=== PATIENT | female | born 1960 | race Caucasian/White ===

== ENCOUNTER → 2018-02-15 19:28 | Outpatient (CLI) | payer OTHER, SELFPAY ==
[2018-02-15 19:42] LABS: Absolute Lymphocyte Count 3.26 X10^3/ul (0.83-4.51); Absolute Neutrophil Count 5.5 X10^3/uL (2.0-7.7); Basophil# 0.05 X10^3/uL; Basophil% 0.5 % (0-1); Eosinophil# 0.18 X10^3/uL; Eosinophils% 1.8 % (0-5); Hematocrit 43.5 % (37-47); Lymphocyte # 3.26 X10^3/ul (4.0); Lymphocyte % 33.4 % (19-41); Mean Corp Hgb Conc 32.2 g/gl (32-36); Mean Corpuscular Volume 90.1 fL (81-99); Mean Platelet Vol. 10.2 fl (6.2-12.0); Monocyte# 0.76 X10^3/uL; Monocyte% 7.8 % (0-10); Neutrophil # 5.49 X10^3/uL (2.7-7.7); Neutrophil % 56.3 % (47-70); Platelet Count 302 K/mm3 (150-450); RBC Distribution Width CV 14.2 % (11.6-14.6); RBC Distribution Width SD 46.4 fl (35.1-43.9); Red Blood Count 4.83 M/mm3 (4.2-5.4); White Blood Count 9.8 K/mm3 (4.4-11.0)
[2018-02-15 19:44] LABS: POSITIVE COUNT NO; POSITIVE DIFFERENTIAL NO; POSITIVE MORPHOLOGY NO
[2018-02-15 19:54] LABS: Erythrocyte Sedimentation Rate 47 mm/hr (0-30)
[2018-02-15 22:25] LABS: AST(SGOT) 27 U/L (15-37); Alanine Aminotransfer ALT/SGPT 37 U/L (13-56); Albumin, Serum 3.8 g/dL (3.2-5.0); Alkaline Phosphatase 141 U/L (45-117); Anion Gap 10 (5-15); BUN 12 mg/dL (7-18); BUN/Creat Ratio 16.4 RATIO (10-20); Calcium,Total 8.7 mg/dL (8.5-10.1); Chloride 100 mmol/L (98-107); Creatinine, Serum 0.73 mg/dL (0.55-1.02); EST Glomerular Filtration Rate 88 mL/min (>60); Est Glom Filt Rate - Afr Amer 106 mL/min (>60); Glucose 82 mg/dL (74-106); Potassium 3.8 mmol/L (3.5-5.1); Protein, Total 7.8 g/dL (6.4-8.2); Sodium Level 140 mmol/L (136-145); Thyroid Stim Hormone (TSH) 0.36 uIU/mL (0.358-3.74)
[2018-02-18 12:13] LABS: ANTINUCLEAR ANTIBODIES DIRECT Negative (Negative)
== END ==
PROVIDERS: Family Provider Family Medicine; PCP Family Medicine; Visit Provider Family Medicine
DX: R21 Rash and other nonspecific skin eruption (principal); E03.9 Hypothyroidism, unspecified
CPT/HCPCS: 80053; 84443; 85025; 85652; 86038

== ENCOUNTER → 2019-08-21 08:24 | Outpatient (CLI) | payer OTHER, SELFPAY ==
[2018-09-12 15:25] VITALS: BMI 33.7
== END ==
PROVIDERS: Family Provider Family Medicine; PCP Family Medicine; Visit Provider Family Medicine
DX: I10 Essential (primary) hypertension (principal); E03.9 Hypothyroidism, unspecified
CPT/HCPCS: 36415

== ENCOUNTER → 2020-08-13 08:27 | Outpatient (CLI) | payer OTHER, SELFPAY ==
[2018-09-12 15:25] VITALS: BMI 33.7
[2020-08-13 09:49] LABS: Hematocrit 42.3 % (37-47); Hemoglobin 12.7 g/dL (12.0-15.0); Mean Corpuscular Hgb 25.8 pg (27.0-32.0); Platelet Count 320 K/mm3 (150-450); RBC Distribution Width CV 15.7 % (11.6-14.6); RBC Distribution Width SD 49.2 fl (35.1-43.9); Red Blood Count 4.92 M/mm3 (4.2-5.4); White Blood Count 7.3 K/mm3 (4.4-11.0)
[2020-08-13 10:07] LABS: Vitamin B12 201 pg/mL (211-911); Vitamin D,25 Hydroxy 22.3 ng/mL
[2020-08-13 12:20] LABS: Anion Gap 3 (5-15); BUN 12 mg/dL (7-18); BUN/Creat Ratio 17.1 RATIO (10-20); Calcium,Total 8.7 mg/dL (8.5-10.1); Chloride 108 mmol/L (98-107); Cholesterol 184 mg/dL (200); EST Glomerular Filtration Rate 91 mL/min (>60); Est Glom Filt Rate - Afr Amer 110 mL/min (>60); Glucose 97 mg/dL (74-106); High Density Lipoprotein 45 mg/dL; Iron 32 ug/dL (50-170); Potassium 4.1 mmol/L (3.5-5.1); Sodium Level 141 mmol/L (136-145); T4 Free Direct 1.37 ng/dL (0.76-1.46); Thyroid Stim Hormone (TSH) 1.88 uIU/mL (0.358-3.74); Triglycerides 74 mg/dL; Very Low Density Lipoprotein 15 mg/dL (5-40)
== END ==
PROVIDERS: PCP Family Medicine; Referring Provider Family Medicine; Visit Provider Family Medicine
DX: Z13.220 Encounter for screening for lipoid disorders (principal); I10 Essential (primary) hypertension; E03.9 Hypothyroidism, unspecified; R53.83 Other fatigue
CPT/HCPCS: 36415; 80048; 80061; 82306; 82607; 83540; 84439; 84443; 85027

== ENCOUNTER → 2020-09-12 16:05 | Outpatient (CLI) | payer OTHER, SELFPAY ==
[2018-09-12 15:25] VITALS: BMI 33.7
--- NOTE | 2020-09-12 16:08 | BI_ITS ---
MAMMOGRAPHY - BILATERAL SCREENING REASON FOR EXAM: Female, 60 years old. Routine annual screening examination. PERTINENT HISTORY: Non-contributory. TECHNIQUE: Digital bilateral breast colin (3D mammographic acquisition) in the CC and MLO projections. 2-D mediolateral oblique (MLO) and craniocaudad (CC) views of both breasts were obtained. CAD: Full Field Digital Mammography with Computer Added Detection was performed. COMPARISON: Comparison is made with prior study dated 07/12/2017 and 03/09/2016. FINDINGS: Breast Composition: The breasts are heterogeneously dense, which may obscure small masses. There are no dominant masses or suspicious calcifications. No other significant abnormalities are identified. There has been no significant change since the prior study. BI/SCREEN MAMM (CAD) W/COLIN BILAT IMPRESSION: Stable bilateral screening mammogram. Yearly follow-up mammogram recommended. (A) ASSESSMENT CATEGORY: BIRADS Category 1: Negative. A letter regarding these results will be sent to the patient by the facility within 30 days. Approximately 10% of breast cancers are not detected by mammography. A normal mammogram should not delay biopsy of a clinically suspicious abnormality. [id number] Electronically Signed: Serigo Rm, at 8:38 EST , Service support ,
== END ==
PROVIDERS: PCP Family Medicine; Referring Provider Family Medicine; Visit Provider Family Medicine
DX: Z12.31 Encounter for screening mammogram for malignant neoplasm of breast (principal)
CPT/HCPCS: 77063; 77067

== ENCOUNTER → 2020-12-09 11:09 | Outpatient (CLI) | payer OTHER, SELFPAY ==
[2018-09-12 15:25] VITALS: BMI 33.7
--- NOTE | 2020-12-09 11:12 | US_ITS ---
STUDY: ULTRASOUND OF THE FEMALE PELVIS - LIMITED REASON FOR EXAM: Female, 60 years old SEE BELOW -- POST MENOPAUSAL BLEEDING, SCREENING FOR MALIGNANT NEOPLASM OF CERVIX TECHNIQUE: Transabdominal and Transvaginal TECHNICAL QUALITY: Adequate. COMPARISON: May 12, 2012 ultrasound pelvis transabdominal study FINDINGS: The uterus is anteverted and is in a midline position. The uterus measures 7.4 x 5.4 x 4.5 cm. The cervix is not well visualized. The endometrium measures 13 mm in thickness, and is partially hyperechoic with a few cysts.. There are small low attenuating cystic structures within the endometrium. There is no demonstrated myometrial mass. The right ovary measures 2.1 x 1.4 x 1 point cm. There is no right ovarian cyst or ovarian mass. There is no visualized right adnexal mass or complex lesion. There is normal arterial and normal venous vascularity. The left ovary measures 2.6 x 1.6 x 1.4 cm. There is no left ovarian cyst or ovarian mass. There is no visualized left adnexal mass or complex lesion. There is normal arterial and normal venous vascularity. There is no fluid in the cul-de-sac. US/Pelvic (Non ) IMPRESSION: Endometrium is thickened, 13 mm with a few associated endometrial cystic structures. Findings are suspicious for endometrial hyperplasia. An endometrium of 4 mm or greater is considered suspicious in a postmenopausal patient with bleeding. Further evaluation is warranted. The cervix is not well visualized. Electronically Signed: Anna Marie Gayle MD at 1:58 EST Tel , Service support ,
--- NOTE | 2020-12-09 11:13 | US_ITS ---
STUDY: ULTRASOUND OF THE FEMALE PELVIS - LIMITED REASON FOR EXAM: Female, 60 years old SEE BELOW -- POST MENOPAUSAL BLEEDING, SCREENING FOR MALIGNANT NEOPLASM OF CERVIX TECHNIQUE: Transabdominal and Transvaginal TECHNICAL QUALITY: Adequate. COMPARISON: May 12, 2012 ultrasound pelvis transabdominal study FINDINGS: The uterus is anteverted and is in a midline position. The uterus measures 7.4 x 5.4 x 4.5 cm. The cervix is not well visualized. The endometrium measures 13 mm in thickness, and is partially hyperechoic with a few cysts.. There are small low attenuating cystic structures within the endometrium. There is no demonstrated myometrial mass. The right ovary measures 2.1 x 1.4 x 1 point cm. There is no right ovarian cyst or ovarian mass. There is no visualized right adnexal mass or complex lesion. There is normal arterial and normal venous vascularity. The left ovary measures 2.6 x 1.6 x 1.4 cm. There is no left ovarian cyst or ovarian mass. There is no visualized left adnexal mass or complex lesion. There is normal arterial and normal venous vascularity. There is no fluid in the cul-de-sac. US/Transvaginal Non- IMPRESSION: Endometrium is thickened, 13 mm with a few associated endometrial cystic structures. Findings are suspicious for endometrial hyperplasia. An endometrium of 4 mm or greater is considered suspicious in a postmenopausal patient with bleeding. Further evaluation is warranted. The cervix is not well visualized. Electronically Signed: Anna Marie Gayle MD at 1:58 EST Tel , Service support ,
== END ==
PROVIDERS: PCP Family Medicine
DX: Z12.4 Encounter for screening for malignant neoplasm of cervix (principal); N95.0 Postmenopausal bleeding
CPT/HCPCS: 76830; 76856

== ENCOUNTER → 2021-02-10 13:50 | Outpatient (CLI) | payer OTHER, SELFPAY ==
[2018-09-12 15:25] VITALS: BMI 33.7
[2021-02-10 15:23] LABS: Ferritin 8 ng/mL (8-252); Iron 26 ug/dL (50-170)
[2021-02-10 15:36] LABS: Vitamin B12 779 pg/mL (211-911); Vitamin D,25 Hydroxy 38.7 ng/mL
== END ==
PROVIDERS: PCP Family Medicine; Referring Provider Family Medicine; Visit Provider Family Medicine
DX: E61.1 Iron deficiency (principal)
CPT/HCPCS: 36415; 82306; 82607; 82728; 83540

== ENCOUNTER → 2021-08-13 14:33 | Outpatient (CLI) | payer OTHER, SELFPAY ==
[2021-08-13 17:56] LABS: Hemoglobin 14.8 g/dL (12.0-15.0); Mean Corp Hgb Conc 32.2 g/dL (32-36); Mean Corpuscular Hgb 29.4 pg (27.0-32.0); Mean Corpuscular Volume 91.3 fL (81-99); Mean Platelet Vol. 10.5 fl (6.2-12.0); Platelet Count 295 K/mm3 (150-450); RBC Distribution Width CV 14.5 % (11.6-14.6); RBC Distribution Width SD 48.4 fl (35.1-43.9); Red Blood Count 5.04 M/mm3 (4.2-5.4); White Blood Count 9.8 K/mm3 (4.4-11.0)
[2021-08-13 18:11] LABS: Erythrocyte Sedimentation Rate 39 mm/hr (0-30)
[2021-08-13 18:34] LABS: ALB/GLOB Ratio 0.8 RATIO (0.9-2.4); AST(SGOT) 21 U/L (15-37); Alanine Aminotransfer ALT/SGPT 34 U/L (13-56); Albumin, Serum 3.6 g/dL (3.2-5.0); Alkaline Phosphatase 120 U/L (45-117); Anion Gap 7 (5-15); BUN 13 mg/dL (7-18); BUN/Creat Ratio 15.8 RATIO (10-20); Calcium,Total 8.9 mg/dL (8.5-10.1); Chloride 104 mmol/L (98-107); Creatinine, Serum 0.82 mg/dL (0.55-1.02); EST Glomerular Filtration Rate 75 mL/min (>60); Est Glom Filt Rate - Afr Amer 91 mL/min (>60); Ferritin 50 ng/mL (8-252); Globulin 4.7 g/dL (2.2-4.2); Glucose 70 mg/dL (74-106); Iron 65 ug/dL (50-170); Potassium 4.1 mmol/L (3.5-5.1); Protein, Total 8.3 g/dL (6.4-8.2); Sodium Level 138 mmol/L (136-145); T4 Free Direct 1.22 ng/dL (0.76-1.46); Thyroid Stim Hormone (TSH) 4.23 uIU/mL (0.358-3.74)
[2021-08-14 10:50] LABS: Vitamin B12 827 pg/mL (211-911); Vitamin D,25 Hydroxy 47.8 ng/mL
== END ==
PROVIDERS: PCP Family Medicine; Referring Provider Family Medicine; Visit Provider Family Medicine
DX: R53.83 Other fatigue (principal); E03.9 Hypothyroidism, unspecified; E53.8 Deficiency of other specified B group vitamins; E55.9 Vitamin D deficiency, unspecified
CPT/HCPCS: 36415; 80053; 82306; 82533; 82607; 82728; 83540; 84439; 84443; 85027; 85652

== ENCOUNTER → 2022-02-13 | Outpatient (CLI) | payer OTHER, SELFPAY ==
[2022-02-13 10:49] LABS: ALB/GLOB Ratio 0.8 RATIO (0.9-2.4); AST(SGOT) 24 U/L (15-37); Alanine Aminotransfer ALT/SGPT 34 U/L (13-56); Albumin, Serum 3.6 g/dL (3.2-5.0); Alkaline Phosphatase 118 U/L (45-117); Anion Gap 6 (5-15); BUN 11 mg/dL (7-18); BUN/Creat Ratio 14.8 RATIO (10-20); Calcium,Total 8.7 mg/dL (8.5-10.1); Chloride 104 mmol/L (98-107); Creatinine, Serum 0.74 mg/dL (0.55-1.02); EST Glomerular Filtration Rate 85 mL/min (>60); Est Glom Filt Rate - Afr Amer 103 mL/min (>60); Globulin 4.5 g/dL (2.2-4.2); Glucose 95 mg/dL (74-106); Potassium 3.9 mmol/L (3.5-5.1); Protein, Total 8.1 g/dL (6.4-8.2); Sodium Level 138 mmol/L (136-145); T4 Free Direct 1.37 ng/dL (0.76-1.46); Thyroid Stim Hormone (TSH) 0.95 uIU/mL (0.358-3.74)
== END | disposition home or self-care (01) ==
LOC: MFPLAB 08:30
PROVIDERS: PCP Family Medicine; Visit Provider Family Medicine
DX: R77.1 Abnormality of globulin (principal); E03.9 Hypothyroidism, unspecified
CPT/HCPCS: 36415; 80053; 84439; 84443

== ENCOUNTER → 2022-02-16 | Outpatient (CLI) | payer OTHER, SELFPAY ==
[2022-02-16 16:24] LABS: Mucous, Urine 0 SEEN /hpf (<or=2+)
[2022-02-16 17:51] LABS: Color, Urine Yellow (Yellow); Glucose, Dipstick Normal (Normal); Ketone-Dipstick Negative (Negative); Leukocyte Esterase-Dipstick Negative /ul (Negative); Nitrite-Dipstick Negative (Negative); Occult Blood-Urine 50 /ul (Negative); Protein-Dipstick Negative (Negative); Urine Bilirubin Dipstick Negative (Negative); Urine Clarity Clear (Clear); Urine Urobilinogen Normal (Normal)
[2022-02-16 18:17] LABS: Bacteria 1+ /hpf (None Seen); Red Blood Cells-Urine 0-5 SEEN /hpf (0-5); Squamous Epithelial Cells - UA 0-5 SEEN /hpf (5-10); White Blood Cells 0-5 SEEN /hpf (0-5)
[2022-02-19 14:09] LABS: PROELU- Albumin, Urine 29.9 % (.); PROELU- Alpha-1-Globulin,Ur 3.3 % (.); PROELU- Alpha-2-Globulin,Ur 13.7 % (.); PROELU- Beta Globulin, Ur 28.9 % (.); PROELU- Gamma Globulin, Ur 24.3 % (.); Total Protein, Ur 8.3 mg/dL (Not Estab.)
== END | disposition home or self-care (01) ==
LOC: MFPLAB 16:22
PROVIDERS: PCP Family Medicine; Visit Provider Family Medicine
DX: R79.82 Elevated C-reactive protein (CRP) (principal)
CPT/HCPCS: 81001; 84166

== ENCOUNTER → 2022-02-23 | Outpatient (CLI) | payer OTHER, SELFPAY ==
[2022-02-25 13:08] LABS: PROEL- A/G Ratio 1.1 (0.7-1.7); PROEL- Albumin 3.8 g/dL (2.9-4.4); PROEL- Alpha-1 Globulin 0.3 g/dL (0.0-0.4); PROEL- Beta Globulin 1.1 g/dL (0.7-1.3); PROEL- Gamma Globulin 1.2 g/dL (0.4-1.8); PROEL- Globulin, Total 3.5 g/dL (2.2-3.9); PROEL- TOTAL PROTEIN 7.3 g/dL (6.0-8.5)
== END | disposition home or self-care (01) ==
LOC: MFPLAB 16:33
PROVIDERS: PCP Family Medicine; Visit Provider Family Medicine
DX: R79.82 Elevated C-reactive protein (CRP) (principal)
CPT/HCPCS: 36415; 84165

== ENCOUNTER → 2022-10-02 | Outpatient (CLI) | payer OTHER, SELFPAY ==
--- NOTE | 2022-10-02 14:35 | CYST_PTH ---
PATIENT: MORA FOREMAN LOC: [facility] U#:[id number] AGE/SX: 62/F ROOM: RE10/02/[address]: Dr. Daphne Arboleda MD : 1960 BED: DIS: 10/02/2022 SPEC #: [id number] RECD: 10/06/22 09:33 STATUS: CHARLINE YELENA #: [id number] SAUL: 10/02/22 14:[address]: Daphne Arboleda DEPT: SURGICAL PATHOLOGY RECD BY: Val Salgado ENTERED: 10/06/22 09:33 SP TYPE: Cyst OTHR DR: Dr. Ector Samuel MD Tissues: CYST Procedures: Surgery Specimen Level IV HEADER OPERATION: Excision of right medial breast / sternal sebaceous cyst PRE-OP DIAGNOSIS: Sebaceous cyst TISSUE SUBMITTED: Right breast / sternal sebaceous cyst tissue MICROSCOPIC DIAGNOSIS Skin and soft tissue of right breast/sternal area, biopsy: Skin and underlying soft tissue with granulation and chronic inflammation. AM:cristy 10/07/2022 MICROSCOPIC DESCRIPTION Slides are reviewed. GROSS DESCRIPTION Received in fixative is one container labeled with the patient's name and designated sebaceous cyst. The specimen consists of an irregular fragment of pink-white soft tissue measuring 1.8 x 1 x 0.5 cm. An ellipse of unremarkable skin is present measuring 1.5 x 0.5 cm. The specimen is bisected along its long axis and totally submitted in one cassette. / AM:cristy 10/06/2022 TC:3 CPT: 77084
== END | disposition home or self-care (01) ==
LOC: LABSPEC 15:41
PROVIDERS: PCP Family Medicine; Visit Provider Surgery
DX: N60.81 Other benign mammary dysplasias of right breast (principal)
CPT/HCPCS: 88304; 88305

== ENCOUNTER → 2023-02-10 | Outpatient (CLI) | payer OTHER, SELFPAY ==
[2023-02-10 10:42] LABS: Vitamin B12 842 pg/mL (211-911); Vitamin D,25 Hydroxy 67.3 ng/mL
[2023-02-10 10:45] LABS: ALB/GLOB Ratio 0.8 RATIO (0.9-2.4); AST(SGOT) 22 U/L (15-37); Alanine Aminotransfer ALT/SGPT 33 U/L (13-56); Albumin, Serum 3.5 g/dL (3.2-5.0); Alkaline Phosphatase 119 U/L (45-117); Anion Gap 8 (5-15); BUN 12 mg/dL (7-18); BUN/Creat Ratio 16.2 RATIO (10-20); Calcium,Total 9.1 mg/dL (8.5-10.1); Chloride 104 mmol/L (98-107); Cholesterol 207 mg/dL (200); Creatinine, Serum 0.74 mg/dL (0.55-1.02); EST Glomerular Filtration Rate 85 mL/min (>60); Est Glom Filt Rate - Afr Amer 102 mL/min (>60); Globulin 4.5 g/dL (2.2-4.2); Glucose 96 mg/dL (74-106); High Density Lipoprotein 41 mg/dL; Potassium 4.4 mmol/L (3.5-5.1); Sodium Level 140 mmol/L (136-145); Thyroid Stim Hormone (TSH) 0.94 uIU/mL (0.358-3.74); Triglycerides 99 mg/dL; Very Low Density Lipoprotein 20 mg/dL (5-40)
[2023-02-17 15:08] LABS: PROEL- A/G Ratio 0.9 (0.7-1.7); PROEL- Albumin 3.4 g/dL (2.9-4.4); PROEL- Alpha-1 Globulin 0.3 g/dL (0.0-0.4); PROEL- Beta Globulin 1.3 g/dL (0.7-1.3); PROEL- Gamma Globulin 1.2 g/dL (0.4-1.8); PROEL- Globulin, Total 3.9 g/dL (2.2-3.9); PROEL- TOTAL PROTEIN 7.3 g/dL (6.0-8.5)
== END | disposition home or self-care (01) ==
LOC: MFPLAB 08:04
PROVIDERS: PCP Family Medicine; Visit Provider Family Medicine
DX: I10 Essential (primary) hypertension (principal); E03.9 Hypothyroidism, unspecified; E53.8 Deficiency of other specified B group vitamins; E55.9 Vitamin D deficiency, unspecified
CPT/HCPCS: 36415; 80053; 80061; 82306; 82607; 84165; 84443

== ENCOUNTER → 2023-04-12 | Outpatient (CLI) | payer OTHER, SELFPAY | END | disposition home or self-care (01) | PROVIDERS: PCP Family Medicine; Referring Provider Nurse Practitioner Acute Care; Visit Provider Nurse Practitioner Acute Care | DX: G47.10 Hypersomnia, unspecified (principal) | CPT/HCPCS: 95806 ==

== ENCOUNTER → 2023-04-29 | Outpatient (CLI) | payer OTHER, SELFPAY ==
--- NOTE | 2023-04-29 15:42 | CT_ITS ---
INDICATION: smoking, quit 2012 EXAMINATION: - CT Low Dose CT Chest for Lung Cancer Screening A radiation dose optimization technique was used for this scan. COMPARISON: None. FINDINGS: Low-dose Noncontrast serial CT axial images through the chest with coronal and sagittal reformatted series. MEDIASTINUM: Mild coronary artery atherosclerotic calcifications. Noncontrast mediastinum is otherwise unremarkable. LUNG PARENCHYMA: No acute pulmonary parenchymal abnormality. Lateral left upper lobe 3 mm pulmonary nodule on axial image 75 of series 2. Right lower lobe juxtapleural 3 mm pulmonary nodule on axial image 108. PLEURA: No pleural effusion. No pneumothorax. BONES: Osseous structures are unremarkable for age. UPPER ABDOMEN: Unremarkable. CT/Low Dose CT Lung Screening IMPRESSION: Lung-RADS CATEGORY 2: Benign Appearance Nodules. Annual screening with low dose CT in 12 months. Electronically Signed: Baron Horta MD at 2:12 EDT ,
== END | disposition home or self-care (01) ==
PROVIDERS: PCP Family Medicine; Referring Provider Nurse Practitioner Acute Care; Visit Provider Nurse Practitioner Acute Care
DX: Z12.2 Encounter for screening for malignant neoplasm of respiratory organs (principal); Z87.891 Personal history of nicotine dependence
CPT/HCPCS: 71271

== ENCOUNTER → 2023-05-13 | Outpatient (CLI) | payer OTHER, SELFPAY | END | disposition home or self-care (01) | LOC: SL 08:57 | PROVIDERS: PCP Family Medicine; Visit Provider Nurse Practitioner Acute Care | DX: R69 Illness, unspecified (principal) ==

== ENCOUNTER → 2023-09-30 | Outpatient (CLI) | payer OTHER, SELFPAY ==
--- NOTE | 2023-09-30 15:16 | BD_ITS ---
STUDY: DUAL ENERGY X-RAY ABSORPTIOMETRY / DXA REASON FOR EXAM: Female, 63 years old. 627.8Menopausal postmenopausal BONE DENSITY REASON FOR EXAM TECHNIQUE: Bone Mineral Density (BMD) measurements of lumbar spine and bilateral hips were obtained. COMPARISON: Comparison is made with prior study dated May 12, 2012. FINDINGS: Lumbar Spine (L1-L4): g/cm2 (1.066) / T-score (0.2) / Z-score (1.7) Findings are suggestive of normal bone density with a low fracture risk. Left Femur Total: g/cm2 (1.025) / T-score (0.7) / Z-score (1.7) Left Femoral Neck: g/cm2 (0.849) / T-score (0.0) / Z-score (1.4) Right Femur Total: g/cm2 (0.941) / T-score (0.0) / Z-score (1.0) Right Femoral Neck: g/cm2 (0.821) / T-score (-0.3) / Z-score (1.1) The T-Scores on the most recent prior examination were: Lumbar Spine (L1-L4): There has been worsening of bone density since the previous examination. Left Femur Total: which represents a worsening of 3.1%. Right Femur Total: which represents a worsening of 4.8%. BD/Dexa Bone Density Study IMPRESSION: The patient is considered normal as outlined below according to World New Organization (WHO) criteria with a low fracture risk. There has been worsening of bone density since the previous examination. Reference Information: The T-score is the number of standard deviations above or below the standard which is normal for young adults at their peak bone mineral density. The World Health Organization (WHO) interprets the T-scores as follows: Above -1 Normal bone density Between -1 and -2.5 Osteopenia Equal to / or below -2.5 Osteoporosis As a practical clinical guideline, osteopenia may be graded as follows: Mild -1 through -1.5 Moderate -1.6 through -2.0 Severe -2.1 through -2.4 The Z-score is the number of standard deviations above or below age-matched controls. A Z-score of less than -1.5 would be considered abnormal. References: 1. NIH Osteoporosis and Related Bone Diseases www osteo.org 2. International Society for Clinical Densitometry www iscd.org 3. National Osteoporosis Foundation www nof.org Electronically Signed: Sergio Rm MD at 15:16 EST ,
--- NOTE | 2023-09-30 15:17 | BI_ITS ---
MAMMOGRAPHY - BILATERAL SCREENING 3-D TOMOSYNTHESIS REASON FOR EXAM: Female, 63 years old. Routine annual screening mammogram. PERTINENT HISTORY: No significant family history. TECHNIQUE: 2-D mammograms and 3-D Tomosynthesis of the breast (s) were performed. CAD was performed. COMPARISON: September 12, 2020, July 12, 2017 FINDINGS: The breast composition is composed of scattered fibroglandular density. Stable normal lymph nodes. No dominant masses, suspicious microcalcifications, asymmetries, skin thickening or nipple retraction . BI/SCRN MAMM (CAD)W/COLIN BILAT IMPRESSION: No interval change and no mammographic signs of malignancy. Routine yearly mammogram recommended. ASSESSMENT CATEGORY: BIRADS Category 2: Benign. A letter regarding these results will be sent to the patient by the facility within 30 days. FOLLOW UP RECOMMENDATION: Yearly follow up mammogram recommended. (A) Approximately 10% of breast cancers are not detected by mammography. A normal mammogram should not delay biopsy of a clinically suspicious abnormality. Electronically Signed: Patrice Castro MD at 9:37 EST ,
--- OUTSIDE RECORDS SUMMARY | 2023-09-30 15:37 | XMS RPT_ITS | CCD ---
Author Name Unknown Address [address] [place] [address] Organization [facility] Results Test Name Value Interpretation Reference Range Facil ity Summary Purpose Family History No Family History Records FoundNo Family History Records Found Advance Directives No Advanced Directives Records FoundNo Advanced Directives Records Found Additional Source Comments INFORMATION SOURCE (unrecogn ized section and content) DATE CREATED AUTHOR AUTHOR'S VICK ATION 09/03/2021 [facility] ([place]) FOR RECORDS PERTAINING TO PATIENTS WHO ARE OR HAVE BEEN ENROLLED IN A CHEMICAL DEPENDENCY/SUBSTANCEABUSE PROGRAM, SOME INFORMATION MAY BE OMITTED. This clinical summary was aggregated from multiple sources. Caution should be exercised in using it in the provision of clinical care. This summary normalizes information from multiple sources, and as a consequence, information in this document may materially change the coding, format and clinical context of patient data. In addition, data may be omitted in some cases. CLINICAL DECISIONS SHOULD BE BASED ON THE PRIMARY CLINICAL RECORDS. [facility] [employer] [facility]. provides no warranty or guarantee of the accuracy or completeness of information in this document.
== END | disposition home or self-care (01) ==
LOC: OPBD 15:14
PROVIDERS: PCP Family Medicine; Visit Provider Family Medicine
DX: Z12.31 Encounter for screening mammogram for malignant neoplasm of breast (principal); Z78.0 Asymptomatic menopausal state
CPT/HCPCS: 77063; 77067; 77080

== ENCOUNTER → 2024-02-24 | Outpatient (CLI) | payer OTHER, SELFPAY ==
[2024-02-24 17:45] LABS: Absolute Lymphocyte Count 2.48 X10^3/uL (0.83-4.51); Absolute Neutrophil Count 5.9 X10^3/uL (2.0-7.7); Basophil# 0.09 X10^3/uL; Basophil% 0.9 % (0-1); Eosinophil# 0.33 X10^3/uL; Eosinophils% 3.4 % (0-5); Hematocrit 46.2 % (37-47); Hemoglobin 14.7 g/dL (12.0-15.0); Lymphocyte # 2.48 X10^3/ul (0.83-4.51); Lymphocyte % 25.7 % (19-41); Mean Corp Hgb Conc 31.8 g/dL (32-36); Mean Corpuscular Hgb 29.6 pg (27.0-32.0); Mean Platelet Vol. 10.1 fl (6.2-12.0); Monocyte% 8.3 % (0-10); NRBC Flagged by Analyzer 0 % (0-5); Neutrophil # 5.91 X10^3/uL (2.7-7.7); Neutrophil % 61.4 % (47-70); Platelet Count 240 K/mm3 (150-450); RBC Distribution Width CV 13.3 % (11.6-14.6); RBC Distribution Width SD 45.1 fl (35.1-43.9); Red Blood Count 4.97 M/mm3 (4.2-5.4); White Blood Count 9.6 K/mm3 (4.4-11.0)
[2024-02-24 18:20] LABS: Ferritin 69 ng/mL (8-252); Iron 55 ug/dL (50-170); T4 Free Direct 1.32 ng/dL (0.76-1.46); Thyroid Stim Hormone (TSH) 0.19 uIU/mL (0.358-3.74)
== END | disposition home or self-care (01) ==
LOC: MFPLAB 14:25
PROVIDERS: PCP Family Medicine; Visit Provider Family Medicine
DX: D64.9 Anemia, unspecified (principal); E03.9 Hypothyroidism, unspecified
CPT/HCPCS: 36415; 82728; 83540; 84439; 84443; 85025

== ENCOUNTER → 2024-05-10 | Outpatient (CLI) | payer OTHER, SELFPAY ==
[2024-05-10 18:19] LABS: T4 Free Direct 1.03 ng/dL (0.76-1.46); Thyroid Stim Hormone (TSH) 2.13 uIU/mL (0.358-3.74)
== END | disposition home or self-care (01) ==
LOC: MFPLAB 15:59
PROVIDERS: PCP Family Medicine; Visit Provider Family Medicine
DX: E03.9 Hypothyroidism, unspecified (principal)
CPT/HCPCS: 36415; 84439; 84443

== ENCOUNTER → 2024-08-01 | Outpatient (CLI) | payer OTHER, SELFPAY ==
--- NOTE | 2024-08-01 12:20 | LES_PTH ---
PATIENT: MORA FOREMAN LOC: [facility] U#:[id number] AGE/SX: 64/F ROOM: RE08/01/[address]: Dr. Odell Bangura MD : 1960 BED: DIS: 08/01/2024 SPEC #: [id number] RECD: 08/01/24 13:51 STATUS: CHARLINE KIRK #: [id number] SAUL: 08/01/24 12:[address]: Odell Bangura DEPT: SURGICAL PATHOLOGY RECD BY: Maycol Clay ENTERED: 08/01/24 14:13 SP TYPE: Lesion OTHR DR: Dr. Ector Samuel MD Tissues: Skin of eyelid, NOS Procedures: Surgery Specimen Level IV HEADER OPERATION: Biopsy lesion right eyelid PRE-OP DIAGNOSIS: Right eyelid lesion TISSUE SUBMITTED: Right upper eyelid biopsy MICROSCOPIC DIAGNOSIS Right upper lid lesion, biopsy: Consistent with fragments of inflamed verrucous keratosis and squamous papilloma. Negative for malignancy. See comment. Ketan 08/02/2024 COMMENT This specimen consists of superficial portion of the lesion. Correlation with clinical findings and appropriate follow up are necessary. MICROSCOPIC DESCRIPTION Slides are reviewed. GROSS DESCRIPTION Received in fixative is one container labeled with the patient's name and designated Right upper lid biopsy. The specimen consists of a piece of covarrubias-white skin with a few hairs measuring 0.5 x 0.5 x 0.2cm. Two smaller fragments of covarrubias-white skin are also noted measuring 0.4 x 0.2 x 0.1cm. The entire specimen is submitted in one cassette. JESSENIAJordan 08/01/2024 TC:5 CPT:34654
== END | disposition home or self-care (01) ==
PROVIDERS: PCP Family Medicine; Referring Provider Surgery Plastic and Reconstructive Surgery; Visit Provider Surgery Plastic and Reconstructive Surgery
DX: L98.9 Disorder of the skin and subcutaneous tissue, unspecified (principal)
CPT/HCPCS: 88305

== ENCOUNTER → 2024-08-10 | Outpatient (CLI) | payer OTHER, SELFPAY | END | disposition home or self-care (01) | PROVIDERS: PCP Family Medicine; Referring Provider Surgery Plastic and Reconstructive Surgery; Visit Provider Surgery Plastic and Reconstructive Surgery | DX: C44.1221 Squamous cell carcinoma of skin of right upper eyelid, including canthus (principal); L82.1 Other seborrheic keratosis; D36.9 Benign neoplasm, unspecified site | CPT/HCPCS: 88305 ==

== ENCOUNTER → 2024-10-02 | Outpatient (CLI) | payer OTHER, SELFPAY ==
--- NOTE | 2024-10-02 16:01 | BI_ITS ---
MAMMOGRAPHY - BILATERAL SCREENING 3-D TOMOSYNTHESIS REASON FOR EXAM: Female, 64 years old. SCREENING PERTINENT HISTORY: No significant family history. TECHNIQUE: 2-D mammograms and 3-D Tomosynthesis of the breast (s) were performed. CAD was performed. COMPARISON: 09/30/2023 FINDINGS: The breast composition is composed of scattered fibroglandular density. Scattered benign calcifications are seen. No dense spiculated masses or suspicious microcalcifications are identified. No architectural distortion is identified. There is no skin thickening or retraction. There has been no significant change since the prior study. BI/SCRN MAMM (CAD)W/COLIN BILAT IMPRESSION: No mammographic signs of malignancy. Routine yearly mammograms recommended. ASSESSMENT CATEGORY: BIRADS Category 1: Negative. A letter regarding these results will be sent to the patient by the facility within 30 days. FOLLOW UP RECOMMENDATION: Yearly follow up mammogram recommended. (A) Approximately 10% of breast cancers are not detected by mammography. A normal mammogram should not delay biopsy of a clinically suspicious abnormality. Electronically Signed: Melo Sheth MD at 20:56 EST ,
== END | disposition home or self-care (01) ==
PROVIDERS: PCP Family Medicine; Referring Provider Family Medicine; Visit Provider Family Medicine
DX: Z12.31 Encounter for screening mammogram for malignant neoplasm of breast (principal)
CPT/HCPCS: 77063; 77067

== ENCOUNTER → 2025-02-19 | Outpatient (CLI) | payer OTHER, SELFPAY | END | disposition home or self-care (01) | LOC: LABSPEC 14:34 | PROVIDERS: PCP Family Medicine; Referring Provider Physician Assistant; Visit Provider Physician Assistant | DX: L72.3 Sebaceous cyst (principal) | CPT/HCPCS: 87070; 87075; 87205 ==

== ENCOUNTER → 2025-02-20 | Outpatient (CLI) | payer OTHER, SELFPAY ==
[2025-02-20 18:04] LABS: Hematocrit 44.4 % (37-47); Hemoglobin 14.5 g/dL (12.0-15.0); Mean Corp Hgb Conc 32.7 g/dL (32-36); Mean Corpuscular Hgb 30.4 pg (27.0-32.0); Mean Corpuscular Volume 93.1 fL (81-99); Mean Platelet Vol. 10.3 fl (6.2-12.0); Platelet Count 270 K/mm3 (150-450); RBC Distribution Width CV 13.4 % (11.6-14.6); RBC Distribution Width SD 45.9 fl (35.1-43.9); Red Blood Count 4.77 M/mm3 (4.2-5.4); White Blood Count 9.1 K/mm3 (4.4-11.0)
[2025-02-20 18:34] LABS: ALB/GLOB Ratio 1.1 RATIO (0.9-2.4); AST(SGOT) 23 U/L (<=31); Alanine Aminotransfer ALT/SGPT 20 U/L (<=34); Alkaline Phosphatase 124 U/L (35-104); Anion Gap 11 (5-15); BUN 11 mg/dL (4-19); Calcium,Total 9.1 mg/dL (7.6-11.0); Chloride 103 mmol/L (98-108); Creatinine, Serum 0.83 mg/dL (0.70-1.20); EST Glomerular Filtration Rate 79 (>60); Globulin 3.6 g/dL (2.2-4.2); Glucose 91 mg/dL (70-99); Potassium 4.1 mmol/L (3.3-5.1); Protein, Total 7.6 g/dL (5.9-8.4); Sodium Level 140 mmol/L (133-145); Total Bilirubin 0.35 mg/dL (0.00-1.30); Vitamin B12 909 pg/mL (180-914); Vitamin D,25 Hydroxy 49.4 ng/mL (30-100)
[2025-02-21 08:30] LABS: Cholesterol 185 mg/dL (<=200); High Density Lipoprotein 38 mg/dL; Low Density Lipoprotein Calc. 123 mg/dL; Triglycerides 120 mg/dL; Very Low Density Lipoprotein 24 mg/dL (5-40); cholesterol:hdl ratio screen 4.84
== END | disposition home or self-care (01) ==
LOC: MFPLAB 15:39
PROVIDERS: PCP Family Medicine; Referring Provider Family Medicine; Visit Provider Family Medicine
DX: I10 Essential (primary) hypertension (principal); E55.9 Vitamin D deficiency, unspecified; E03.9 Hypothyroidism, unspecified; D64.9 Anemia, unspecified
CPT/HCPCS: 36415; 80053; 80061; 82306; 82607; 84439; 84443; 85027

== ENCOUNTER → 2025-04-09 | Outpatient (CLI) | payer OTHER, SELFPAY | END | disposition home or self-care (01) | LOC: MFPLAB 12:11 | PROVIDERS: PCP Family Medicine; Referring Provider Family Medicine; Visit Provider Family Medicine | DX: E03.9 Hypothyroidism, unspecified (principal) | CPT/HCPCS: 36415; 84443 ==